=== PATIENT | female | born 1955 | race Caucasian/White ===

== ENCOUNTER 2021-11-09 05:35 | Day surgery (SDC) | payer OTHER, SELFPAY ==
[~2021-11-09] VITALS: Ht 154.9 cm; Wt 109.8 kg
[2021-11-09] MEDS ORDERED: MIDAZOLAM HCL 5 MG/5 ML VIAL IVP ONE (07:51)
[2021-11-09] MEDS ORDERED: NS 1000 ML IV.SOLN IV ONE (07:51)
[2021-11-09] MEDS ORDERED: KETOROLAC TROMETHAMINE 30 MG VIAL IVP ONE (07:51)
[2021-11-09] MEDS ORDERED: PROPOFOL 200MG/ 20ML VIAL (DIPRIVAN) IV ONE (07:51)
[2021-11-09] MEDS ORDERED: SEVOFLURANE 15 MIN GAS INH ONE (07:51)
[2021-11-09] MEDS ORDERED: ONDANSETRON HCL 4 MG/2 ML VIAL IVP ONE (07:51)
[2021-11-09] MEDS ORDERED: NS IRRIG SOLN 1000 ML IR ONE (07:51)
[2021-11-09] MEDS ORDERED: CEFAZOLIN 1 GM IVPB PREMIX 50 ML IV ONE (07:51)
[2021-11-09] MEDS ORDERED: KETOROLAC TROMETHAMINE 30 MG VIAL IVP PRN (08:30)
[2021-11-09] MEDS ORDERED: HYDROmorphone 1 MG/ML INJ. CARTRIDGE IVP PRN (08:30)
[2021-11-09] MEDS ORDERED: ONDANSETRON HCL 4 MG/2 ML VIAL IVP PRN ×2 (08:30)
[2021-11-09] MEDS ORDERED: HYDROcodone/ACETAMIN 5-325 MG TAB (NORCO/ VICODIN) PO PRN (08:30)
[2021-11-09] MEDS ORDERED: OXYCODONE/ACETAMINOPHEN 5-325 TABLET PO PRN ×2 (08:30)
[2021-11-09 12:46] VITALS: BP_SYST 140
== END 2021-11-09 11:25 | disposition home or self-care (01) ==
LOC: SDS 05:35 → SMU 05:35 → SDS 11:25
PROVIDERS: ATTEND Specialist
DX: N95.0 Postmenopausal bleeding (principal); E66.01 Morbid (severe) obesity due to excess calories; Z79.82 Long term (current) use of aspirin; Z79.899 Other long term (current) drug therapy; Z20.822 Contact with and (suspected) exposure to COVID-19
CPT/HCPCS: 36415; 58558; 87426; 88305; J0690; J1885; J2250; J2405; J2704; J7030; U0003